=== PATIENT | female | born 1955 | race African-American/Black ===

== ENCOUNTER 2021-03-14 21:18 | Emergency (ER) | payer MEDICARE, MEDICAID ==
[2021-03-14] MEDS ORDERED: Sulfameth/Trimethoprim DS 800-160mg TAB ONE (21:33)
[2021-03-14] MEDS ORDERED: Boostrix 0.5 ML (Tdap) VIAL ONE (21:33)
== END 2021-03-14 21:55 | disposition home or self-care (01) ==
LOC: NAV ERS 21:18
DX: L03.116 Cellulitis of left lower limb (principal); F17.210 Nicotine dependence, cigarettes, uncomplicated
CPT/HCPCS: 90471; 90715

== ENCOUNTER 2021-07-24 16:59 | Emergency (ER) | payer OTHER ==
[2021-07-24] MEDS ORDERED: Aspirin Chewable 81 MG TAB ONE (17:29)
[2021-07-24 17:43] LABS: Mean Corpuscular HGB CONC 31.2 g/dL (32.0-36.0); Mean Corpuscular Hemoglobin 29.7 pg (27.0-31.0); Mean Corpuscular Volume 95.4 fL (78.0-98.0); Mean Platelet Volume 7.5 fL (7.4-10.4); Platelet Count 254 thou/uL (130-400); RBC Distribution Width 12.7 % (11.5-14.5); Red Blood Cell (RBC) Count 4.72 mill/uL (4.20-5.40); White Blood Cell (WBC) Count 5.3 thou/uL (4.8-10.8)
[2021-07-24 17:56] LABS: ALT (SGPT) 14 U/L (8-55); AST (SGOT) 12 U/L (5-34); Albumin 3.9 g/dL (3.4-4.8); Alkaline Phosphatase 59 U/L (40-110); Anion Gap 14 mmol/L (10-20); BUN (Urea Nitrogen) 15 mg/dL (9.8-20.1); Bilirubin, Total 0.4 mg/dL (0.2-1.2); Calc. Creatinine Clearance 0 mL/min (70-130); Calcium 9.2 mg/dL (7.8-10.44); Carbon Dioxide 27 mmol/L (23-31); Chloride 102 mmol/L (98-107); Globulin 3.1 g/dL (2.4-3.5); Glucose 101 mg/dL (80-115); Potassium 4.4 mmol/L (3.5-5.1); Sodium 139 mmol/L (136-145)
[2021-07-24 18:00] LABS: Clarity Clear (Clear); Glucose, Urine (Dipstick) Negative (Negative); Ketone, Urine Negative (Negative); Leukocyte Negative (Negative); Nitrite Negative (Negative); Protein, Urine (Dipstick) Negative (Neg-Trace); Specific Gravity, Urine 1.015 (1.005-1.030)
[2021-07-24 18:01] LABS: Bilirubin Negative (Negative); Blood, Urine Negative (Negative); Urobilinogen 0.2 mg/dL (Less than 2)
[2021-07-24] MEDS ORDERED: Ketorolac Tromethamine 30 MG/ML VIAL ONE (18:01)
[2021-07-24 18:14] LABS: Eosinophils 5 % (0-10); Lymphocytes 40 % (21-51); MDiff Complete? YES; Monocytes 7 % (0-10); Neutrophil 46 % (42-75); Toxic Granulation SLIGHT
== END 2021-07-24 18:24 | disposition home or self-care (01) ==
LOC: NAV ERS 16:59
DX: R07.9 Chest pain, unspecified (principal); M54.2 Cervicalgia; F17.210 Nicotine dependence, cigarettes, uncomplicated
CPT/HCPCS: 36415; 71045; 80053; 81003; 84484; 85025; 93005; 94760; 96372; J1885